=== PATIENT | female | born 1965 | race Caucasian/White ===

== ENCOUNTER 2016-04-22 06:42 | Day surgery (SDC) ==
[2014-07-15 19:41] VITALS: BMI 27.3
[2016-04-22] MEDS ORDERED: LIDOCAINE 1% 20 ML MDV ONE (07:30)
[2016-04-22] MEDS ORDERED: LIDOCAINE 1% 20 ML MDV ID ONE (07:30)
[2016-04-22] MEDS ORDERED: VERSED ONE (08:30)
[2016-04-22] MEDS ORDERED: DIPRIVAN 20 ML VIAL IVP ONE (08:30)
[2016-04-22 10:26] VITALS: BP 156/88; TEMP 99.3
--- NOTE | 2016-04-22 14:05 | OP ---
PROCEDURE: COLONOSCOPY TO THE CECUM WITH SNARE POLYPECTOMY. ENDOSCOPIST: William KELLY M.D. INDICATION: SCREENING. INSTRUMENT: [facility]-190. MEDICATION: PER ANESTHESIA. PROCEDURE: The patient was positioned for colonoscopy. The digital rectal exam was negative. The colonoscope was inserted through the anus and advanced to the cecum. The cecum was identified using the ileocecal valve and the appendiceal orifice as landmarks. The scope was slowly withdrawn through an adequately prepped colon. Three polyps were removed in the cecal pit. These had a fairly typical hyperplastic appearance. All were removed using snare cautery. The remaining colonoscopy exam was normal. Retroflex exam was normal. She tolerated the procedure without immediate complication. Withdrawal time 10 minutes and 8 seconds. PLAN: 1. Suggest she undergo repeat colonoscopy in the 3 years. CC: DR. BISI HASTINGS
== END 2016-04-22 10:20 | disposition home or self-care (01) ==
LOC: SURG 06:42
PROVIDERS: ATTEND Internal Medicine Gastroenterology
DX: Z12.11 Encounter for screening for malignant neoplasm of colon (principal); D12.0 Benign neoplasm of cecum